=== PATIENT | female | born 1955 | race Caucasian/White ===

== ENCOUNTER → 2020-04-27 | Outpatient (CLI) | payer MEDICARE, OTHER ==
--- NOTE | 2020-04-28 12:52 | MAM ---
EXAM DESCRIPTION: 3D Screening BILATERAL : Digital Mammography. CLINICAL HISTORY: 65 years Female ANNUAL SCREENING . Left breast cancer December 1995 with lumpectomy and scarring. Menarche age unknown. Childbirth age 26. Menopause age unknown. Left breast augmentation. No HRT. Lifetime risk of developing breast cancer (Tyrer-Cuzick model)(%): Calculated due to personal history of breast cancer. COMPARISON: Bilateral screening digital breast tomosynthesis December 2018. At outside imaging facility. No prior reports available. TECHNIQUE: Bilateral CC and MLO projection full-field images, with left breast Stefania Implant Displacement digital tomosynthesis mammographic technique. Left breast 2-D digital full-field images, MLO and CC projections, non-displaced. Left breast digital 2-D full-field MLO image. With implant displaced. CAD available for 2-D images. FINDINGS: The breast parenchymal density pattern is: Scattered areas of fibroglandular density. No skin thickening or nipple retraction. Again noted is inferior tissue thickening with coarse calcifications. Right breast and focal asymmetry posterior right breast. Multiple small and large calcifications and architectural distortion left breast. Benign like calcifications have increased. Submuscular breast implants on the left stable in position. Capsule appears intact where seen. No new focal, stellate mass or density, focal asymmetry , and no suspicious microcalcifications bilaterally. Stable mammograms compared to prior study. Taking into account, differences in mammographic technique. IMPRESSION: Benign exam. BIRAD CATEGORY: 2 BENIGN FINDINGS. RECOMMENDATIONS: FOLLOW UP: Routine digital bilateral mammographic screening, one year interval from April 2020. Written communication explaining the IMPRESSION and follow-up, will be mailed to the patient and referring health care provider. According to the [employer], yearly mammograms are recommended starting at age 40 and continuing as long as a woman is in good health. Any breast change noted on a breast self-exam should be reported promptly to the patient's healthcare provider. Breast MRI is recommended for women with an approximately 20-25% or greater lifetime risk of breast cancer, including women with a strong family history of breast or ovarian cancer and women who have been treated for Hodgkin's disease. A negative mammographic report should not delay tissue diagnosis in patients with significant clinical history or physical findings. Extremely dense breast tissue limits the sensitivity of digital mammography. Electronically signed by: Denny Templeton MD 04/28/2020 12:51 PM CDT
== END ==
LOC: MAMMO 09:19
PROVIDERS: ATTEND Family Medicine
DX: Z12.31 Encounter for screening mammogram for malignant neoplasm of breast (principal)

== ENCOUNTER → 2020-11-29 | Outpatient (CLI) | payer MEDICARE, OTHER | LOC: GMAE 14:35 | PROVIDERS: ATTEND Family Medicine | DX: Z79.899 Other long term (current) drug therapy (principal); E78.2 Mixed hyperlipidemia ==